=== PATIENT | female | born 1975 | race Caucasian/White ===

== ENCOUNTER 2018-12-22 04:20 | Inpatient (IN) | payer OTHER, MEDICAID ==
[~2018-12-22] VITALS: Ht 167.6 cm; Wt 86.2 kg
[2018-12-22] MEDS ORDERED: ONDANSETRON HCL 4MG/2ML INJ IV STA (06:32)
[2018-12-22] MEDS ORDERED: MORPHINE SULFATE 4 MG/ML CPJ (NOT FOR IM USE) IV STA (06:32)
[2018-12-22 06:55] LABS: BASOPHILS % 1.1 % (0.0-2.0); EOSINOPHILS % 2.2 % (0.0-5.0); HEMATOCRIT. 40.1 % (36.0-48.0); HEMOGLOBIN. 13.3 g/dL (12.0-16.0); LYMPHOCYTES % 18.9 % (20.0-50.0); MEAN CORPUSCULAR HEMOGLOBIN 28.7 pg (28.0-32.0); MEAN CORPUSCULAR VOLUME 86.3 fL (81.0-99.0); MEAN PLATELET VOLUME 9.9 fl (7.4-10.4); MONOCYTES % 4.5 % (2.0-8.0); NEUTROPHILS % 73.3 % (40.0-76.0); PLATELET 235 x1000/uL (130-400); RED BLOOD CELL COUNT 4.64 mill/uL (4.2-5.4); RED CELL DISTRIBUTION WIDTH 13.8 % (11.6-14.6)
[2018-12-22 06:58] LABS: CHLORIDE 111 mEq/L (98-107)
[2018-12-22 08:00] VITALS: BP 126/84
[2018-12-22] MEDS ORDERED: ASPIRIN 325MG EC TABLET PO ONE (08:00)
[2018-12-22] MEDS ORDERED: LORAZEPAM 0.5MG TABLET PO PRN (10:00)
[2018-12-22] MEDS ORDERED: ZOLPIDEM TARTRATE 5MG TABLET PO PRN (10:00)
[2018-12-22] MEDS ORDERED: TRAMADOL 50MG TABLET PO PRN (10:00)
[2018-12-22] MEDS ORDERED: IPRATROPIUM/ALBUTEROL 0.5-3(2.5)MG/3ML NEB INH PRN (10:00)
[2018-12-22] MEDS ORDERED: NITROGLYCERIN 0.4MG TABLET SL SL PRN (10:00)
[2018-12-22] MEDS ORDERED: DOCUSATE SODIUM 100MG CAPSULE PO PRN (10:00)
[2018-12-22] MEDS ORDERED: KETOROLAC 30MG/ML VIAL IV PRN (10:00)
[2018-12-22] MEDS ORDERED: ONDANSETRON HCL 4MG/2ML INJ IV PRN (10:00)
[2018-12-22] MEDS ORDERED: CLONIDINE 0.1MG TABLET PO PRN (10:00)
[2018-12-22] MEDS ORDERED: MAGNESIUM/ALUMINUM HYDROXIDE/SIMETHICONE 30ML UDC PO PRN (10:00)
[2018-12-22] MEDS ORDERED: GUAIFENESIN 200MG/10ML SUGAR FREE UDC PO PRN (10:00)
[2018-12-22] MEDS ORDERED: ACETAMINOPHEN 325MG TABLET PO PRN (10:00)
[2018-12-22 10:43] VITALS: BP 115/76
[2018-12-22] MEDS ORDERED: VITAMIN D (10:52)
[2018-12-22] MEDS: SUCRALFATE 1 G/10 ML UDC PO SCH ×3 (11:10→20:37)
[2018-12-22] MEDS: ENOXAPARIN 40MG/0.4ML SYR SUBCUT SCH (11:11)
[2018-12-22] MEDS ORDERED: PNEUMOCOCCAL 23-VAL P-SAC VAC 0.5 ML IM ONE (13:45)
[2018-12-22 16:00] VITALS: BP 119/75
[2018-12-22 16:16] LABS: CREATINE KINASE 72 IU/L (26-192)
[2018-12-22 16:17] LABS: CREATINE KINASE MB FRACTION < 1.0 ng/mL (0.5-3.6)
[2018-12-22 20:00] VITALS: BP 109/68
[2018-12-22] MEDS: FAMOTIDINE 20MG TABLET PO SCH (20:37)
[2018-12-23] VITALS: BP 109/62
[2018-12-23 00:24] LABS: CREATINE KINASE 60 IU/L (26-192)
[2018-12-23 00:25] LABS: CREATINE KINASE MB FRACTION < 1.0 ng/mL (0.5-3.6)
[2018-12-23 04:00] VITALS: BP 98/53
[2018-12-23] MEDS: SUCRALFATE 1 G/10 ML UDC PO SCH ×2 (05:52→12:32)
[2018-12-23 08:00] VITALS: BP 110/62
[2018-12-23] MEDS ORDERED: ASPIRIN 325MG EC TABLET PO SCH (09:00)
[2018-12-23] MEDS: ENOXAPARIN 40MG/0.4ML SYR SUBCUT SCH (09:07)
[2018-12-23] MEDS: FAMOTIDINE 20MG TABLET PO SCH (09:07)
[2018-12-23 12:00] VITALS: BP 144/75
[2018-12-23 15:20] VITALS: BP 144/75
== END 2018-12-23 15:40 | disposition home or self-care (01) | DRG 203 ==
LOC: ER 04:20 → 5EST 07:46 → EDBEDREQ 07:56 → EDBEDREQTM 07:56 → ENRESERV 08:42 → ORIP 09:47 → 5WST 09:48
PROVIDERS: ADMIT Internal Medicine; ATTEND Internal Medicine
DX: R07.89 Other chest pain (principal); E66.9 Obesity, unspecified; E78.00 Pure hypercholesterolemia, unspecified; Z86.73 Personal history of transient ischemic attack (TIA), and cerebral infarction without residual deficits; Z88.0 Allergy status to penicillin; Z90.49 Acquired absence of other specified parts of digestive tract; Z68.30 Body mass index [BMI] 30.0-30.9, adult
CPT/HCPCS: 36415; 71045; 80061; 82550; 82553; 83036; 83880; 84484; 93005; 93306; 93970; 99285; J1650; J2270; J2405

== ENCOUNTER 2019-02-15 08:56 | Emergency (ER) | payer MEDICAID ==
[~2019-02-15] VITALS: Ht 167.6 cm; Wt 84.0 kg
[~2019-02-15 08:56] MED LIST: VITAMIN D
[2019-02-15] MEDS ORDERED: MORPHINE SULFATE 4 MG/ML CPJ (NOT FOR IM USE) IV STA ×2 (09:56→19:04)
[2019-02-15] MEDS ORDERED: ONDANSETRON HCL 4MG/2ML INJ IV STA ×2 (09:56→19:04)
[2019-02-15] MEDS ORDERED: SODIUM CHLORIDE 0.9% 1,000 ML IV ONE (09:56)
[2019-02-15 10:21] LABS: BASOPHILS % 0.6 % (0.0-2.0); EOSINOPHILS % 1.1 % (0.0-5.0); HEMATOCRIT. 37.7 % (36.0-48.0); HEMOGLOBIN. 12.6 g/dL (12.0-16.0); LYMPHOCYTES % 16.4 % (20.0-50.0); MEAN CORPUSCULAR HEMOGLOBIN 28.7 pg (28.0-32.0); MEAN CORPUSCULAR VOLUME 85.8 fL (81.0-99.0); MEAN PLATELET VOLUME 10.1 fl (7.4-10.4); MONOCYTES % 5.7 % (2.0-8.0); NEUTROPHILS % 76.2 % (40.0-76.0); PLATELET 146 x1000/uL (130-400); RED CELL DISTRIBUTION WIDTH 14.1 % (11.6-14.6)
[2019-02-15 10:27] LABS: CHLORIDE 106 mEq/L (98-107)
[2019-02-15 11:24] LABS: KETONES URINE 2+ (NEGATIVE); LEUKOCYTE ESTERASE URINE 1+ (NEGATIVE); NITRITE URINE NEGATIVE (NEGATIVE); OCCULT BLOOD URINE 3+ (NEGATIVE); PH URINE 5.5 (4.5-8.0); PROTEIN URINE 3+ (NEGATIVE); SPECIFIC GRAVITY URINE 1.028 (1.005-1.030); UROBILINOGEN URINE 0.2 E.U./dL (0.2-1.0)
[2019-02-15 11:26] LABS: COLOR URINE BLOODY (YELLOW)
[2019-02-15 11:27] LABS: CLARITY URINE TURBID (CLEAR)
[2019-02-15 20:02] VITALS: BP 123/60
== END 2019-02-15 20:03 | disposition short-term general hospital (02) ==
LOC: ER 08:56
DX: O02.0 Blighted ovum and nonhydatidiform mole (principal); O08.83 Urinary tract infection following an ectopic and molar pregnancy; Z86.73 Personal history of transient ischemic attack (TIA), and cerebral infarction without residual deficits; Z98.890 Other specified postprocedural states; Z88.0 Allergy status to penicillin; Z88.8 Allergy status to other drugs, medicaments and biological substances
CPT/HCPCS: 36415; 76801; 76817; 80053; 81003; 81025; 84702; 85025; 86850; 86900; 86901; 96374; 96375; 96376; 99285; J2270; J2405; J7030

== ENCOUNTER 2021-08-20 07:13 | Emergency (ER) | payer MEDICAID, OTHER ==
[~2021-08-20] VITALS: Ht 165.1 cm; Wt 79.0 kg
[2021-08-20] MEDS ORDERED: MORPHINE SULFATE 4 MG/ML CPJ (NOT FOR IM USE) IV ONE (07:45)
[2021-08-20] MEDS ORDERED: ONDANSETRON HCL 4MG/2ML INJ IV ONE (07:45)
[2021-08-20 08:04] LABS: CLARITY URINE CLOUDY (CLEAR); COLOR URINE YELLOW (YELLOW); KETONES URINE NEGATIVE (NEGATIVE); LEUKOCYTE ESTERASE URINE 1+ (NEGATIVE); NITRITE URINE NEGATIVE (NEGATIVE); OCCULT BLOOD URINE 3+ (NEGATIVE); PROTEIN URINE 1+ (NEGATIVE); SPECIFIC GRAVITY URINE 1.023 (1.005-1.030); UROBILINOGEN URINE 0.2 E.U./dL (0.2-1.0)
[2021-08-20 08:41] LABS: BASOPHILS % 0.6 % (0.0-2.0); CHLORIDE 108 mEq/L (98-107); EOSINOPHILS % 2.8 % (0.0-5.0); HEMATOCRIT. 44.5 % (36.0-48.0); LYMPHOCYTES % 24.3 % (20.0-50.0); MEAN CORPUSCULAR HEMOGLOBIN 29.5 pg (28.0-32.0); MEAN CORPUSCULAR VOLUME 87.5 fL (81.0-99.0); MEAN PLATELET VOLUME 10.4 fl (7.4-10.4); MONOCYTES % 4.9 % (2.0-8.0); NEUTROPHILS % 67.4 % (40.0-76.0); PLATELET 209 x1000/uL (130-400); RED BLOOD CELL COUNT 5.08 mill/uL (4.2-5.4); RED CELL DISTRIBUTION WIDTH 13.6 % (11.6-14.6)
[2021-08-20 08:55] LABS: HCG SCREEN NEGATIVE
[2021-08-20] MEDS ORDERED: NITR-87 PO (09:40)
[2021-08-20] MEDS ORDERED: TOPUD PO (09:40)
[2021-08-20 10:30] VITALS: BP 136/65
== END 2021-08-20 10:30 | disposition home or self-care (01) ==
LOC: ER 07:13
DX: N39.0 Urinary tract infection, site not specified (principal); R11.2 Nausea with vomiting, unspecified; Z98.890 Other specified postprocedural states
CPT/HCPCS: 36415; 76830; 76856; 80053; 81003; 84703; 85025; 86850; 86900; 86901; 87086; 96374; 96375; 99284; J2270; J2405

== ENCOUNTER 2023-07-16 07:21 | Emergency (ER) | payer OTHER ==
[~2023-07-16] VITALS: Ht 165.1 cm; Wt 66.0 kg
[~2023-07-16 07:21] MED LIST changes: +NITR-87 PO; +TOPUD PO
[2023-07-16] MEDS ORDERED: ONDANSETRON HCL 4MG/2ML INJ IV STA (07:33)
[2023-07-16 07:41] VITALS: TEMP 98.6; O2SAT 98
[2023-07-16] MEDS ORDERED: SODIUM CHLORIDE 0.9% 1,000 ML IV ONE ×2 (07:45→14:45)
[2023-07-16 09:22] LABS: BASOPHILS % 0.4 % (0.0-2.0); EOSINOPHILS % 0.1 % (0.0-5.0); HEMATOCRIT. 44.2 % (36.0-48.0); HEMOGLOBIN. 15.1 g/dL (12.0-16.0); LYMPHOCYTES % 12.1 % (20.0-50.0); MEAN CORPUSCULAR HEMOGLOBIN 29.5 pg (28.0-32.0); MEAN CORPUSCULAR HGB CONC 34.1 g/dL (31.0-37.0); MEAN CORPUSCULAR VOLUME 86.5 fL (81.0-99.0); MEAN PLATELET VOLUME 9.7 fl (7.4-10.4); MONOCYTES % 4.8 % (2.0-8.0); NEUTROPHILS % 82.6 % (40.0-76.0); PLATELET 243 x1000/uL (130-400); RED BLOOD CELL COUNT 5.11 mill/uL (4.2-5.4); WHITE BLOOD COUNT 12.7 x1000/uL (4.5-11.0)
[2023-07-16 09:32] LABS: INR 0.9; PROTHROMBIN TIME 9.9 sec (9.6-11.0)
[2023-07-16 10:04] LABS: ALANINE AMINOTRANSFERASE 83 IU/L (10-49); ALBUMIN 4.5 g/dL (3.2-4.8); ASPARTATE AMINOTRANSFERASE 41 IU/L (<34); BILIRUBIN TOTAL 0.7 mg/dL (0.1-1.0); CALCIUM 9.4 mg/dL (8.7-10.4); CARBON DIOXIDE 21 mEq/L (21-32); CHLORIDE 103 mEq/L (98-107); CREATININE 0.7 mg/dL (0.6-1.0); GLUCOSE 148 mg/dL (70-105); POTASSIUM 3.9 mEq/L (3.5-5.1); PROTEIN TOTAL 7.5 g/dL (6.0-8.3); SODIUM 137 mEq/L (136-145); UREA NITROGEN BLOOD 8 mg/dL (9-23)
[2023-07-16 10:06] LABS: ETHANOL BLOOD < 10 mg/dL (<10)
[2023-07-16 10:36] LABS: CLARITY URINE CLOUDY (CLEAR); COLOR URINE YELLOW (YELLOW); GLUCOSE URINE NEGATIVE (NEGATIVE); KETONES URINE 4+ (NEGATIVE); LEUKOCYTE ESTERASE URINE NEGATIVE (NEGATIVE); NITRITE URINE NEGATIVE (NEGATIVE); OCCULT BLOOD URINE 1+ (NEGATIVE); PH URINE 5.5 (4.5-8.0); PROTEIN URINE TRACE (NEGATIVE); SPECIFIC GRAVITY URINE 1.021 (1.005-1.030)
[2023-07-16 10:39] LABS: BACTERIA URINE 2+; YEAST URINE NONE SEEN
[2023-07-16 10:56] LABS: MUCUS URINE 2+ /lpf (< = 2+)
[2023-07-16 10:57] LABS: RBC URINE 0-2 /hpf (0-2)
[2023-07-16 10:58] LABS: SQUAMOUS EPITHELIAL CELL URINE 3+ /lpf (RARE/1+)
[2023-07-16 12:05] LABS: HCG SCREEN NEGATIVE
[2023-07-16 12:15] LABS: *AMPHETAMINES SCREEN URINE NEGATIVE (NEGATIVE); *BARBITURATES SCREEN URINE NEGATIVE (NEGATIVE); *BENZODIAZEPINES SCREEN URINE NEGATIVE (NEGATIVE); *COCAINE SCREEN URINE NEGATIVE (NEGATIVE); CANNABINOID URINE SCREEN PRESUMPTIVE POSITIVE (NEGATIVE); ECSTASY MDMA SCREEN URINE NEGATIVE (NEGATIVE); METHADONE URINE SCREEN Neg (NEGATIVE); OPIATES URINE SCREEN NEGATIVE (NEGATIVE); PHENCYCLIDINE URINE SCREEN NEGATIVE (NEGATIVE)
[2023-07-16] MEDS ORDERED: HALOPERIDOL LACTATE 5MG/ML VIAL IM NR (14:45)
[2023-07-16] MEDS ORDERED: MORPHINE SULFATE 4 MG/ML CPJ (NOT FOR IM USE) IV ONE (14:45)
[2023-07-16] MEDS ORDERED: PROCHLORPERAZINE 10MG/2ML VIAL IV PRN (14:45)
[2023-07-16] MEDS ORDERED: IOHEXOL-300 100 ML BOTTLE ONE (14:47)
[2023-07-16 16:00] VITALS: BP 155/79; PULSE 82; RESP 16
== END 2023-07-16 17:53 ==
LOC: ER 07:21
DX: R11.2 Nausea with vomiting, unspecified (principal); F12.10 Cannabis abuse, uncomplicated; Z98.890 Other specified postprocedural states
CPT/HCPCS: 80053; 80305; 81003; 80320; 84703; 83605; 83690; 85025; 85610; 86850; 86900; 86901; 36415; 71045; 70450; 74177; 93005; 96361; 96372; 96374; 96375; 99285; Q9967; J1630; J2405; J2270; J7030; G0480